=== PATIENT | male | born 1945 | race Caucasian/White ===

== ENCOUNTER → 2020-06-21 11:30 | Outpatient (CLI) | payer OTHER, SELFPAY ==
[2020-06-21 13:51] LABS: COVID19 -Nasal RAPID Negative (Negative)
== END ==
PROVIDERS: Visit Provider Physician Assistant
DX: Z20.822 Contact with and (suspected) exposure to COVID-19 (principal)
CPT/HCPCS: 87635

== ENCOUNTER 2020-06-23 11:32 | Day surgery (SDC) | payer OTHER, SELFPAY ==
[2020-06-23] VITALS (8 sets, daily range): BP systolic 102–147; BP diastolic 69–86; PULSE 63–75; RESP 14–18; TEMP 36.3–36.9; O2SAT 98–100; BMI 26.7
[2020-06-23] MEDS: SODIUM CHLORIDE 0.9% 1,000 ML 100 ML IV (12:11)
--- NOTE | 2020-06-23 12:29 | PM.HP.1 ---
History of Present Illness History of Present Illness Date Patient Seen: 06/23/20 Chief complaint: SDC Narrative: Persistent GE reflux and cough Patient History Family & Social History Social History: household members spouse Tobacco & Substance use: Smoking Status Never smoker alcohol intake frequency a few times a month Substance Use Type does not use Meds Home Medications and Allergies Home Medications Medication Instructions Recorded Confirmed Type amlodipine 5 mg PO DAILY 06/23/20 06/23/20 History famotidine 20 mg PO DAILY 06/23/20 06/23/20 History imatinib [Gleevec] 400 mg PO DAILY 06/23/20 06/23/20 History lisinopril 10 mg PO DAILY 06/23/20 06/23/20 History Allergies Allergy/AdvReac Type Severity Reaction Status Date / Time No Known Drug Allergies Allergy Verified 06/23/20 11:52 Exam Vital Signs (past 8 hours): - 06/23/20 12:02 Temperature 98.3 F Pulse Rate 63 Respiratory Rate 16 Blood Pressure 147/71 H Pulse Oximetry 99 Oxygen Delivery Method Room Air Narrative Exam Narrative: Oropharynx free of lesions Chest clear to auscultation percussion Cardiac exam reveals no S3 or murmur Assessment & Plan Assessment & Plan narrative: Persistent GE reflux rule out peptic esophagitis. Risks, benefits, alternatives have been explained.
--- NOTE | 2020-06-23 12:30 | PM.OP.ENDO ---
Operative Date/Time/Diagnoses Date of procedure: 06/23/20 Pre-op diagnosis: See indication and findings Procedure & Clinicians Study performed: EGD Same procedure as scheduled: Yes Indications: Persistent GE reflux Procedure Notes Procedure in detail: After informed consent was obtained the patient was placed in left lateral decubitus position. The video upper scope placed into the oropharynx with the patient's help swelled in the esophagus. The esophagus stomach and duodenum were carefully examined. On withdrawal, retroflexed view the GE junction was performed. The scope was removed. The patient tolerated procedure well. Blood loss none Complications none Sedation Total sedation time 10 minutes Versed 6 mg fentanyl 100 mg IV titration Findings 1. Normal esophagus other than somewhat gaping lower esophageal sphincter. No evidence for Julio's esophagus or peptic esophagitis 2. Normal stomach 3. Normal duodenum Eligio use done well with his q.h.s. famotidine and has had significant decrease in symptoms. He believes his cough is more from chronic postnasal drip than anything else. He should follow-up with us on a as needed basis.
[2020-06-23] MEDS: MIDAZOLAM 5 MG/5 ML VIAL IV (12:33)
[2020-06-23] MEDS: fentaNYL 250 MCG/5 ML INJ IV (12:33)
== END 2020-06-23 13:34 | disposition home or self-care (01) ==
PROVIDERS: PCP Internal Medicine; Referring Provider Internal Medicine Gastroenterology; Visit Provider Internal Medicine Gastroenterology
PROC: 0DJ08ZZ Inspection of Upper Intestinal Tract, Via Natural or Artificial Opening Endoscopic (ICD-10-PCS; CPT 43235; principal; 2020-06-23 12:30)
DX: K21.9 Gastro-esophageal reflux disease without esophagitis (principal); R05 Cough
CPT/HCPCS: 43235; J2250; J3010